=== PATIENT | female | born 1980 | race Caucasian/White ===

== ENCOUNTER 2016-07-02 01:35 | Emergency (ER) | payer OTHER ==
[2016-07-02 02:14] LABS: URINE BILIRUBIN NEGATIVE (NEGATIVE); URINE BLOOD 1+ (NEGATIVE); URINE GLUCOSE (UA) NORMAL (NORMAL); URINE KETONE NEGATIVE (NEGATIVE); URINE LEUKOCYTE ESTERASE 2+ (NEGATIVE); URINE NITRATE POSITIVE (NEGATIVE); URINE PROTEIN 2+ (NEGATIVE); UROBILINOGEN NORMAL mg/dL (<1.0)
[2016-07-02 02:22] LABS: BASO % 0.2 % (0.1-1.2); EOS % 0.8 % (0.7-5.8); GRAN # 4.2 10_X3_uL (1.6-6.1); GRAN % 84.6 % (34.0-71.1); HEMATOCRIT 26.3 % (34-45); LYMPH # 0.6 10_X3_uL (1.2-3.7); MEAN CORPUSCULAR HGB CONC 30.4 g/dL (32.0-36.0); MEAN CORPUSCULAR VOLUME 87.1 fL (79-95); MEAN PLATELET VOLUME 11.3 fl (7.5-11.5); MONO # 0.1 10_X3_uL (0.2-0.9); MONO % 1.4 % (4.7-12.5); PLATELET COUNT 193 x10_3/uL (182-369); RED BLOOD COUNT 3.02 x10_6/uL (3.9-5.2); RED CELL DISTRIBUTION WIDTH 14.8 % (11.7-14.4); WHITE BLOOD COUNT 4.9 x10_3/uL (4.0-10.0)
[2016-07-02 02:27] LABS: MEAN CORPUSCULAR HEMOGLOBIN 26.4 pg (27.0-33.0)
[2016-07-02 02:28] LABS: URINE RBC 0-5 /[HPF] (0-2); URINE WBC TNTC /[HPF] (0-5)
[2016-07-02 02:29] LABS: URINE BACTERIA 2+ (NONE SEEN)
[2016-07-02 02:48] LABS: BLOOD UREA NITROGEN 14 mg/dL (7-18); CALCIUM 8.1 mg/dL (8.7-10.7); CARBON DIOXIDE 20 mmol/L (21-32); CREATININE 0.6 mg/dL (0.6-1.3); GLUCOSE,RANDOM 105 mg/dL (70-99); POTASSIUM 3.2 mmol/L (3.5-5.1); SODIUM 138 mmol/L (136-145)
[2016-07-02 22:19] LABS: BASO % 0.2 % (0.1-1.2); EOS % 0.6 % (0.7-5.8); GRAN # 3.5 10_X3_uL (1.6-6.1); GRAN % 65.9 % (34.0-71.1); HEMOGLOBIN 8.3 g/dL (11.2-15.7); LYMPH # 1.1 10_X3_uL (1.2-3.7); LYMPH % 20.9 % (19.3-51.7); MEAN CORPUSCULAR HEMOGLOBIN 26.9 pg (27.0-33.0); MEAN CORPUSCULAR HGB CONC 30.7 g/dL (32.0-36.0); MEAN CORPUSCULAR VOLUME 87.7 fL (79-95); MEAN PLATELET VOLUME 11.5 fl (7.5-11.5); MONO # 0.7 10_X3_uL (0.2-0.9); MONO % 12.4 % (4.7-12.5); PLATELET COUNT 199 x10_3/uL (182-369); RED BLOOD COUNT 3.08 x10_6/uL (3.9-5.2); RED CELL DISTRIBUTION WIDTH 15.1 % (11.7-14.4); WHITE BLOOD COUNT 5.3 x10_3/uL (4.0-10.0)
[2016-07-02 22:28] LABS: BLOOD UREA NITROGEN 13 mg/dL (7-18); CALCIUM 8.1 mg/dL (8.7-10.7); CARBON DIOXIDE 22 mmol/L (21-32); CREATININE 0.6 mg/dL (0.6-1.3); GLUCOSE,RANDOM 99 mg/dL (70-99); POTASSIUM 3.3 mmol/L (3.5-5.1); SODIUM 140 mmol/L (136-145)
== END 2016-07-02 04:02 | disposition home or self-care (01) ==
LOC: ER 01:35
PROVIDERS: Emergency Medicine
DX: N10 Acute pyelonephritis (principal); E87.6 Hypokalemia; R50.9 Fever, unspecified; R11.10 Vomiting, unspecified; J45.909 Unspecified asthma, uncomplicated; J32.9 Chronic sinusitis, unspecified; Z79.899 Other long term (current) drug therapy; Z79.3 Long term (current) use of hormonal contraceptives; Z88.1 Allergy status to other antibiotic agents; N30.90 Cystitis, unspecified without hematuria; D64.9 Anemia, unspecified
CPT/HCPCS: 36415; 80048; 81001; 83605; 85025; 87040; 87086; 87186; 96361; 96365; 96368; 96375; 99070; 99283-25